=== PATIENT | male | born 1950 | race Two or more races ===

== ENCOUNTER 2017-07-24 19:33 | Emergency (ER) | payer OTHER ==
[~2017-07-24] VITALS: Ht 167.6 cm; Wt 70.0 kg
[2017-07-24 22:56] LABS: HEMATOCRIT 41.9 % (38.0-50.0); HEMOGLOBIN 14.6 G/DL (12.5-16.6); MCH 31.6 PG (29.0-34.0); MCHC 34.8 G/DL (30.0-36.0); MCV 90.7 FL (86-99); PLATELET COUNT 241 K/uL (156-360); RBC DIS.WIDTH-CV 12.4 % (11.8-14.6); RBC DIS.WIDTH-SD 40.7 % (39-53); RED BLOOD COUNT 4.62 M/uL (4.00-5.50); WHITE BLOOD COUNT 10.6 K/uL (4.1-10.2)
[2017-07-24 23:04] LABS: CHLORIDE 106 mEq/L (99-109); POTASSIUM 3.7 mEq/L (3.7-5.4); SODIUM 143 mEq/L (136-147)
[2017-07-24 23:05] LABS: GLUCOSE 113 mg/dL (70-99)
[2017-07-24 23:09] LABS: CREATININE 0.6 mg/dL (0.6-1.3); GFR ESTIMATE (CALCULATED) > 59 mL/min/ (58.99-99999)
[2017-07-24 23:10] LABS: UREA NITROGEN (BUN) 16 mg/dL (9-23)
[2017-07-25] MEDS ORDERED: AUGMENTIN875 MG PO (02:25)
[2017-07-25 02:48] VITALS: BP 118/101
== END 2017-07-25 02:49 | disposition home or self-care (01) ==
LOC: EME 19:33
PROVIDERS: Physician Assistant
DX: K04.7 Periapical abscess without sinus (principal); L03.211 Cellulitis of face; R62.50 Unspecified lack of expected normal physiological development in childhood; G82.50 Quadriplegia, unspecified; M41.9 Scoliosis, unspecified
CPT/HCPCS: 70487; 80048; 85027; 99281; 99284; J7040